=== PATIENT | female | born 1980 | race Caucasian/White ===

== ENCOUNTER → 2018-08-09 | Outpatient (CLI) | payer MEDICAID | END | disposition home or self-care (01) | LOC: CFH 13:32 | PROVIDERS: ATTEND Emergency Medicine | DX: R10.2 Pelvic and perineal pain (principal) | CPT/HCPCS: 76830 ==

== ENCOUNTER 2018-11-17 01:14 | Emergency (ER) | payer MEDICAID ==
[~2018-11-17] VITALS: Ht 165.1 cm; Wt 116.5 kg
[2018-11-17 01:16] VITALS: BP 157/77
== END 2018-11-17 02:38 | disposition home or self-care (01) ==
LOC: ED 02:36
DX: N30.01 Acute cystitis with hematuria (principal); F17.200 Nicotine dependence, unspecified, uncomplicated; Z90.710 Acquired absence of both cervix and uterus; Z90.49 Acquired absence of other specified parts of digestive tract
CPT/HCPCS: 36415; 80053; 81001; 81025; 83690; 85025; 87077; 87086; 87186; 99283

== ENCOUNTER 2019-03-14 22:40 | Emergency (ER) | payer MEDICAID ==
[~2019-03-14] VITALS: Ht 165.1 cm; Wt 117.7 kg
[~2019-03-14 22:40] MED LIST: NAPR-856 PO
[2019-03-14 22:42] VITALS: BP 123/76
[2019-03-14] MEDS ORDERED: PHENAZOPYRIDINE 200 MG TABLET PO ONE (23:30)
[2019-03-14] MEDS ORDERED: PHENAZOPYRIDINE 200 MG TABLET ONE (23:41)
[2019-03-14 23:49] LABS: HCG UR SG 1.004 (1.003-1.030); MICROSCOPIC AUTO
[2019-03-14 23:51] LABS: CULTURE INDICATED? YES
[2019-03-14] MEDS ORDERED: LIDOCAINE-MPF 1%, 2ML ONE (23:59)
[2019-03-15] MEDS ORDERED: KETOROLAC 60 MG/2 ML ONE
[2019-03-15] MEDS ORDERED: ONDANSETRON ODT 4 MG PO ONE
[2019-03-15] MEDS ORDERED: CEFTRIAXONE 1,000 MG ONE
[2019-03-15] MEDS ORDERED: ONDANSETRON ODT 4 MG ONE
[2019-03-15] MEDS ORDERED: CEFTRIAXONE 1,000 MG IM ONE
[2019-03-15] MEDS ORDERED: KETOROLAC 60 MG/2 ML IM ONE
== END 2019-03-15 00:23 | disposition home or self-care (01) ==
LOC: ED 22:54
DX: R30.0 Dysuria (principal); F17.200 Nicotine dependence, unspecified, uncomplicated; Z90.49 Acquired absence of other specified parts of digestive tract; Z90.710 Acquired absence of both cervix and uterus
CPT/HCPCS: 81001; 81025; 87086; 96372; 99283; J0696; J1885; Q0162